=== PATIENT | female | born 1985 | race Caucasian/White ===

== ENCOUNTER → 2016-10-31 | Day surgery (SDC) | payer OTHER ==
[~2016-10-31] MED LIST: ACETAMINOPHEN 1000 MG/100 ML VIAL IV ONE; BUPIVACAINE/EPINEPHRINE 0.25% 50 ML VIAL ONE; LACTATED RINGER'S 1000 ML INJ 1,000 ML ONE; LIDOCAINE 1%/EPINEPHrine 1:100,000 SOLN 20 ML VIAL ONE; MIDAZOLAM HCL 2 MG/2 ML VIAL ONE; ONDANSETRON HCL 4 MG/2 ML VIAL IV PUSH ONE; PROMETHAZINE INJ 25 MG/ML VIAL ONE; PROPOFOL 200 MG/20 ML AMP IV ONE; ceFAZolin INJ 1,000 MG VIAL ONE
--- NOTE | 2016-10-31 11:02 | TN ---
cc: CELESTE MENDOZA MD, JOSEPH D. M.D. DATE OF SURGERY: 10/31/2016 PREOPERATIVE DIAGNOSIS Umbilical hernia, symptomatic. POSTOPERATIVE DIAGNOSIS Umbilical hernia, symptomatic. PROCEDURE Repair of umbilical hernia. ANESTHESIA TIVA. SURGEON Dr. Schmitz. INDICATION This is a pleasant 31-year-old female who has a small umbilical hernia that is fairly symptomatic. Plans were made for above. PROCEDURE The patient was taken to the operating room and placed in the supine position on the operating table. After anesthesia her abdomen was prepped with Betadine. Time-out is done. She is given preoperative antibiotics. We make vertical incision just in the umbilicus, dissect down through the subcutaneous tissue. It is noted she is quite thin. She has a very small about 3 mm hernia defect which is completely reduced. The hernia sac is removed. We then close the defect in a horizontal fashion using three interrupted 0 Ethibond sutures. The deep layer was then closed with a 3-0 Vicryl and skin with a 4-0 Vicryl. Steri-Strips were applied. Sterile bandage was applied. The patient tolerated the procedure well and had no immediate postop complications. Arnulfo Schmitz MD JDB/TLL /10:47 AM /10:52 AM
== END | disposition home or self-care (01) ==
LOC: ESDC 09:10
PROVIDERS: ATTEND Surgery
DX: K42.9 Umbilical hernia without obstruction or gangrene (principal)
CPT/HCPCS: 00750; 49585; J0131; J0690; J2250; J2405; J2550; J3010; J7120